=== PATIENT | female | born 1955 | race Caucasian/White ===

== ENCOUNTER 2017-06-16 01:25 | Inpatient (IN) | payer BC ==
[~2017-06-16] VITALS: Ht 157.5 cm; Wt 88.6 kg
[~2017-06-16 01:25] MED LIST: MELOXICAM7.5 MG PO; MULTI FOR HER; PREVACID30 M1 PO; PRINIVIL5 MG PO; TRAMADOL HYDROC50 MG
[2017-06-16 02:44] LABS: HEMATOCRIT 44.2 % (37.0-47.0); HEMOGLOBIN 14.9 g/dl (12.0-16.0); IMMATURE GRANULOCYTES 0.4 % (0.0-1.0); MEAN CELL VOLUME 90.6 fL CALC (80.0-100.0); MEAN CORPUSCULAR HGB 30.5 pG CALC (26.0-32.0); MEAN CORPUSCULAR HGB CONC 33.7 g/L CALC (32.0-36.0); NEUT# 9.15 thou/uL (2.00-7.15); RED BLOOD COUNT 4.88 mill/uL (4.20-5.60); RED CELL DISTRI WIDTH 14.6 % (11.5-15.5)
[2017-06-16 02:45] LABS: URINE BILIRUBIN - DIPSTICK NEGATIVE (NEGATIVE); URINE BLOOD DIPSTICK MODERATE (NEGATIVE); URINE CLARITY CLOUDY; URINE COLOR YELLOW; URINE GLUCOSE - DIPSTICK NEGATIVE (NEGATIVE); URINE KETONE TRACE mg/dL (NEGATIVE); URINE LEUK ESTERASE NEGATIVE (NEGATIVE); URINE NITRITE - DIPSTICK POSITIVE (Negative); URINE PROTEIN - DIPSTICK 30 mg/dL (NEG-TRACE); URINE UROBILINOGEN - DIPSTICK 0.2 E.U./dL (0.2)
[2017-06-16 02:50] LABS: URINE BACTERIA MANY hpf; URINE SQUAMOUS EPITHELIAL CELL FEW EPI/hpf (0-FEW)
[2017-06-16 02:52] LABS: ALBUMIN 4.4 g/dL (3.2-5.0); ALKALINE PHOSPHATASE 74 u/l (38-126); AMYLASE 83 u/l (30-110); ANION GAP 19 (6-22 (CALC)); BILIRUBIN, TOTAL 0.8 mg/dL (0.0-1.4); BUN 17 mg/dL (8-23); BUN/CREATININE RATIO 21 (12-20 (CALC)); CALCIUM 9.4 mg/dL (8.4-10.2); CARBON DIOXIDE 21 mmol/l (22-30); CHLORIDE 105 mmol/l (95-108); CREATININE 0.8 mg/dL (0.5-1.0); GFR > 60 ML/MIN (>=60 (CALC)); GFR FOR AFR.AMER. > 60 ML/MIN (>=60 (CALC)); GLUCOSE 131 mg/dL (82-115); LIPASE 129 u/l (23-300); POTASSIUM 3.6 mmol/l (3.5-5.1); SGOT/AST 41 u/l (9-36); SGPT/ALT 28 u/l (11-66); SODIUM 142 mmol/l (137-146); TOTAL PROTEIN 7.6 g/dL (6.3-8.2)
[2017-06-16 07:54] VITALS: BP 172/96
[2017-06-16 11:24] LABS: HEMATOCRIT 48.8 % (37.0-47.0); HEMOGLOBIN 15.8 g/dl (12.0-16.0)
[2017-06-16 15:24] VITALS: BP 150/88
[2017-06-16 18:00] VITALS: BP 129/83
[2017-06-17 05:26] VITALS: BP 152/91
[2017-06-17 05:47] LABS: HEMATOCRIT 43.1 % (37.0-47.0); HEMOGLOBIN 14.8 g/dl (12.0-16.0); IMMATURE GRANULOCYTES 0.5 % (0.0-1.0); MEAN CELL VOLUME 88.7 fL CALC (80.0-100.0); MEAN CORPUSCULAR HGB 30.5 pG CALC (26.0-32.0); MEAN CORPUSCULAR HGB CONC 34.3 g/L CALC (32.0-36.0); NEUT# 10.52 thou/uL (2.00-7.15); RED BLOOD COUNT 4.86 mill/uL (4.20-5.60); RED CELL DISTRI WIDTH 14.7 % (11.5-15.5)
[2017-06-17 05:59] LABS: ANION GAP 15 (6-22 (CALC)); BUN 15 mg/dL (8-23); BUN/CREATININE RATIO 18 (12-20 (CALC)); CARBON DIOXIDE 24 mmol/l (22-30); CHLORIDE 103 mmol/l (95-108); CREATININE 0.8 mg/dL (0.5-1.0); GFR > 60 ML/MIN (>=60 (CALC)); GFR FOR AFR.AMER. > 60 ML/MIN (>=60 (CALC)); GLUCOSE 102 mg/dL (82-115); MAGNESIUM 1.8 mg/dL (1.6-2.3); POTASSIUM 3.4 mmol/l (3.5-5.1); SODIUM 140 mmol/l (137-146)
[2017-06-17 08:43] VITALS: BP 154/88
[2017-06-17 15:12] VITALS: BP 160/85
[2017-06-17 17:29] VITALS: BP 149/76
[2017-06-17 19:05] VITALS: BP 147/87
[2017-06-17 23:25] VITALS: BP 109/68
== END 2017-06-17 20:30 | DRG 394 ==
LOC: ED 01:25 → ED-I 04:05 → ED 04:20 → MS2 04:21
PROVIDERS: Emergency Medicine; Internal Medicine; Nurse Practitioner Family; ADMIT Internal Medicine; ATTEND Internal Medicine
PROC: 0D9670Z Drainage of Stomach with Drainage Device, Via Natural or Artificial Opening (ICD-10-PCS; principal; 2017-06-16)
DX: K94.19 Other complications of enterostomy (principal); K51.90 Ulcerative colitis, unspecified, without complications; I10 Essential (primary) hypertension; N39.0 Urinary tract infection, site not specified; K21.9 Gastro-esophageal reflux disease without esophagitis; K44.9 Diaphragmatic hernia without obstruction or gangrene; Y83.3 Surgical operation with formation of external stoma as the cause of abnormal reaction of the patient, or of later complication, without mention of misadventure at the time of the procedure; Z90.49 Acquired absence of other specified parts of digestive tract
CPT/HCPCS: J1650; Q9967; S0164

== ENCOUNTER → 2018-11-15 | Outpatient (REF) | payer BC ==
[~2018-11-15] MED LIST changes: +ALLEGRA180 MG PO; +AZO-CRANBERY450 MG PO; +MULTI VIT PO
[2018-11-15 10:00] VITALS: BP 149/85
--- NOTE | 2018-12-01 10:10 | NUR ---
PATIENT PHONED REGARDING RESULT FROM BIOPSY. THE BIOPSY WAS BENIGN. ADVISED PATIENT OF THE SAME.
== END | disposition home or self-care (01) | DRG 392 ==
LOC: FIORUCCI 09:29 → FIOURUCCI 10:00 → FIORUCCI 10:00
PROVIDERS: ATTEND Surgery
DX: K21.9 Gastro-esophageal reflux disease without esophagitis (principal)

== ENCOUNTER 2018-11-23 07:43 | Day surgery (SDC) | payer BC ==
[2018-11-23 09:48] VITALS: BP 130/77
== END 2018-11-23 10:00 | disposition home or self-care (01) | DRG 392 ==
LOC: ENDO 07:43 → ORM 09:00 → ENDO 10:00
PROVIDERS: ATTEND Surgery
PROC: 0DB68ZX Excision of Stomach, Via Natural or Artificial Opening Endoscopic, Diagnostic (ICD-10-PCS; principal; 2018-11-23)
DX: K21.9 Gastro-esophageal reflux disease without esophagitis (principal); K31.7 Polyp of stomach and duodenum; K44.9 Diaphragmatic hernia without obstruction or gangrene; K29.80 Duodenitis without bleeding